=== PATIENT | male | born 1995 | race Caucasian/White ===

== ENCOUNTER 2019-08-11 02:40 | Observation (INO) | payer BC ==
--- NOTE | 2019-08-11 02:45 | EDM.PDOC ---
ED HPI GENERAL MEDICAL PROBLEM - General Time Seen by Provider: 08/11/19 02:44 - History of Present Illness INITIAL COMMENTS - FREE TEXT/NARRATIVE: PT presents ETOH abuse tonight. Was at the [employer] DD states pt "drank a whole bottle of makers cheryl" - Related Data Allergies Allergy/AdvReac Type Severity Reaction Status Date / Time cat dander Allergy Other Verified 08/11/19 02:45 Home Meds: Home Meds . [Unable to Verify Home Med List] 08/11/19 [History] ED ROS GENERAL - Review of Systems Review Of Systems: Unable To Obtain Reason Not Obtained: Unable to communicate to to large amount of etoh intake. ED EXAM, GENERAL - Physical Exam Exam: See Below Free Text/Narrative:: PT with acute alcohole intake tonight. Per friend "pt never drinks alcohol". Pt was at the [employer] when he dranke a "bottle of makers cheryl by himself". KLAUS at 292 tonight, unk pmhx as pt is not able to answer question. PT had vomited prior to arrival, LS cta no signs of asperation. Pt is awake and agitated, mildly combative. PT given 2 mg ativan for sedation,4 mg zofran for nausea, IV LR wide open 1000 ml, will then change to NS 125 cc/hr. Ativan q1h prn and benadryl 50 mg q4h as needed for sedation. Zofran 4 mg q4h prn N/V. Will admit obs for fluid and reduction of KLAUS. Exam Limited By: Intoxication General Appearance: Alert Eye Exam: Bilateral Eye: PERRL Ears: Normal External Exam Nose: Normal Inspection, Normal Mucosa, No Blood Throat/Mouth: Normal Inspection, Normal Lips, Normal Teeth, Normal Gums, Normal Oropharynx, Normal Voice, No Airway Compromise Head: Atraumatic, Normocephalic Respiratory/Chest: No Respiratory Distress, Lungs Clear, Normal Breath Sounds, No Accessory Muscle Use, Chest Non-Tender Cardiovascular: Normal Peripheral Pulses GI/Abdominal: Normal Bowel Sounds, Soft, Non-Tender, No Organomegaly, No Distention, No Abnormal Bruit, No Mass Skin Exam: Warm, Dry, Intact Course - Vital Signs Last Recorded V/S: Last Vital Signs Temp 36.0 C 08/11/19 02:45 Pulse 118 H 08/11/19 02:45 Resp 10 L 12/07/19 02:45 BP 111/72 08/11/19 02:45 Pulse Ox 97 08/11/19 02:45 - Orders/Labs/Meds Orders: Active Orders 24 hr Category Date Time Status Admission Status [Patient Status] [ADT] Routine ADT 08/11/19 03:34 Ordered UA RFX NEPTALI AND CULT IF INDIC [URIN] Stat Lab 08/11/19 02:46 Ordered URINE DRUG SCREEN,POC [POC] Stat Lab 08/11/19 02:47 Ordered LORazepam [Ativan] Med 08/11/19 03:32 Ordered 1 mg IVPUSH Q1H PRN Sodium Chloride 0.9% [Saline Flush] Med 08/11/19 02:45 Active 10 ml FLUSH ASDIRECTED PRN diphenhydrAMINE [Benadryl] Med 08/11/19 03:33 Ordered 50 mg IVPUSH Q4H PRN Peripheral IV Insertion Adult [OM.PC] Routine Oth 08/11/19 02:45 Ordered Medication Orders Diphenhydramine HCl (Benadryl) 50 mg IVPUSH Q4H PRN PRN Reason: Agitation Lorazepam (Ativan) 1 mg IVPUSH Q1H PRN PRN Reason: Anxiety Sodium Chloride (Saline Flush) 10 ml FLUSH ASDIRECTED PRN PRN Reason: Keep Vein Open Labs: Laboratory Tests 08/11/19 08/11/19 Range/Units 02:56 02:56 WBC 12.5 H (4.0-10.0) x10^3/uL RBC 5.35 (4.5-6.0) x10^6/uL Hgb 16.7 (14.0-18.0) g/dL Hct 46.9 (40.0-52.0) % MCV 87.7 (78.0-93.0) fL MCH 31.2 (26.0-32.0) pg MCHC 35.6 (32.0-36.0) g/dL RDW Coeff of Citlaly 13.1 (10.0-15.0) % Plt Count 209 (130-400) x10^3/uL Neut % (Auto) 76.1 (50.0-80.0) % Lymph % (Auto) 14.8 L (25.0-50.0) % [place] % (Auto) 8.1 (2.0-11.0) % Eos % (Auto) 0.8 (0.0-4.0) % Baso % (Auto) 0.2 (0.2-1.2) % Sodium 146 H (136-145) mmol/L Potassium 3.7 (3.5-5.1) mmol/L Chloride 105 (98-107) mmol/L Carbon Dioxide 25 (21-32) mmol/L Anion Gap 19.7 (10-20) mmol/L BUN 15 (7-18) mg/dL Creatinine 1.3 (0.70-1.30) mg/dL Est Cr Clr Drug Dosing TNP Estimated GFR (MDRD) > 60 Glucose 99 (74-106) mg/dL Calcium 8.5 (8.5-10.1) mg/dL Ethyl Alcohol 292 H (0-3) mg/dL Meds: Medications Generic Name Dose Route Start Last Admin Trade Name Freq PRN Reason Stop Dose Admin Diphenhydramine HCl 50 mg 08/11/19 03:33 Benadryl IVPUSH Q4H PRN Agitation Lorazepam 1 mg 08/11/19 03:32 Ativan IVPUSH Q1H PRN Anxiety Sodium Chloride 10 ml 08/11/19 02:45 Saline Flush FLUSH ASDIRECTED PRN Keep Vein Open Discontinued Medications Generic Name Dose Route Start Last Admin Trade Name Freq PRN Reason Stop Dose Admin Lactated Ringer's 1,000 mls @ 999 drops/min 08/11/19 02:56 08/11/19 03:02 Ringers, Lactated IV 08/11/19 03:11 999 drops/min ONETIME ONE Administration Lorazepam 1 mg 08/11/19 02:47 08/11/19 03:02 Ativan IVPUSH 08/11/19 02:48 1 mg STAT ONE Administration Lorazepam 1 mg 08/11/19 03:08 08/11/19 03:13 Ativan IVPUSH 08/11/19 03:09 1 mg STAT ONE Administration Ondansetron HCl 4 mg 08/11/19 02:59 08/11/19 03:05 Zofran IVPUSH 08/11/19 03:00 4 mg ONETIME ONE Administration Departure - Departure Time of Disposition: 03:42 Disposition: Refer to Observation Condition: Good Clinical Impression: Alcohol abuse - Discharge Information - My Orders Last 24 Hours: My Active Orders 08/11/19 02:45 Sodium Chloride 0.9% [Saline Flush] 10 ml FLUSH ASDIRECTED PRN Peripheral IV Insertion Adult [OM.PC] Routine 08/11/19 02:46 UA RFX NEPTALI AND CULT IF INDIC [URIN] Stat 08/11/19 02:47 URINE DRUG SCREEN,POC [POC] Stat 08/11/19 03:32 LORazepam [Ativan] 1 mg IVPUSH Q1H PRN 08/11/19 03:33 diphenhydrAMINE [Benadryl] 50 mg IVPUSH Q4H PRN 08/11/19 03:34 Admission Status [Patient Status] [ADT] Routine - Assessment/Plan Admission H&P: Please use this note as an admission H&P Last 24 Hours: My Active Orders 08/11/19 02:45 Sodium Chloride 0.9% [Saline Flush] 10 ml FLUSH ASDIRECTED PRN Peripheral IV Insertion Adult [OM.PC] Routine 08/11/19 02:46 UA RFX NEPTALI AND CULT IF INDIC [URIN] Stat 08/11/19 02:47 URINE DRUG SCREEN,POC [POC] Stat 08/11/19 03:32 LORazepam [Ativan] 1 mg IVPUSH Q1H PRN 08/11/19 03:33 diphenhydrAMINE [Benadryl] 50 mg IVPUSH Q4H PRN 08/11/19 03:34 Admission Status [Patient Status] [ADT] Routine
[2019-08-11] MEDS ORDERED: LORazepam 2 MG/ML SDV IVPUSH ONE ×2 (02:47→03:08)
[2019-08-11] MEDS ORDERED: Lactated Ringers 1,000 ML IV ONE (02:56)
[2019-08-11] MEDS ORDERED: Ondansetron 4 MG/2 ML SDV IVPUSH ONE (02:59)
[2019-08-11 03:24] LABS: CHLORIDE,CL 105 mmol/L (98-107); SODIUM,NA 146 mmol/L (136-145)
[2019-08-11 03:26] LABS: ANION GAP 19.7 mmol/L (10-20)
[2019-08-11] MEDS ORDERED: diphenhydrAMINE 50 MG/ML SDV IVPUSH PRN (03:33)
[2019-08-11] MEDS ORDERED: Ondansetron 4 MG/2 ML SDV IVPUSH PRN (03:36)
[2019-08-11] MEDS: LORazepam 2 MG/ML SDV IVPUSH PRN ×2 (03:54→06:32)
[2019-08-11] MEDS: Sodium Chloride 0.9% 10 ML Syringe FLUSH PRN ×2 (03:55→06:32)
[2019-08-11] MEDS: Sodium Chloride 0.9% 1,000 ML IV SCH ×2 (03:57→11:16)
[2019-08-11 16:44] LABS: BUPRENORPHINE,URINE NEGATIVE (NEGATIVE); MARIJUANA,URINE NEGATIVE (NEGATIVE); METHYLENEDIOXYMETHAMP,UR NEGATIVE (NEGATIVE)
[2019-08-11 16:45] LABS: PHENCYCLIDINE,URINE NEGATIVE (NEGATIVE)
--- NOTE | 2019-08-11 20:18 | PCM.DCSUM1 ---
Discharge Summary - Hospital Course HPI Initial Comments: He was admitted secondary to acute intoxication and needed observation. He was admitted by the emergency room. He had less lethargy later today and he was able to ambulate without risk of falling. He did do a urine specimen. He is able to get a ride. I was comfortable with his discharge today. Diagnosis: Stroke: No Modified Sac Scale: No Symptoms at All Modified Sac Scale Score: 0 - Discharge Data Discharge Date: 08/11/19 Discharge Disposition: Home, Self-Care 01 Condition: Good - Referral to Home Health Primary Care Physician: PCP Unobtainable - Patient Summary/Data Hospital Course: Admitted to observation. Discharged today. I reviewed the history and physical. - Patient Instructions Diet: Usual Diet as Tolerated Activity: As Tolerated Driving: Do Not Drive Showering/Bathing: May Shower Notify Provider of: Fever, Increased Pain, Swelling and Redness, Nausea and/or Vomiting - Discharge Plan *PRESCRIPTION DRUG MONITORING PROGRAM REVIEWED*: Not Applicable *COPY OF PRESCRIPTION DRUG MONITORING REPORT IN PATIENT NEETA: Not Applicable Home Medications: Home Meds . [Unable to Verify Home Med List] 08/11/19 [History] Oxygen Therapy Mode: Room Air Forms: ED Department Discharge Referrals: PCP,Unobtain [Primary Care Provider] - - Discharge Summary/Plan Comment DC Time >30 min.: No - General Info Date of Service: 08/11/19 Functional Status: Reports: Pain Controlled, Tolerating Diet, Ambulating - Review of Systems General: Reports: No Symptoms - Patient Data Vitals - Most Recent: Last Vital Signs Temp 37.1 C 08/11/19 13:49 Pulse 113 H 08/11/19 13:49 Resp 18 08/11/19 13:49 BP 114/46 L 08/11/19 13:49 Pulse Ox 94 L 08/11/19 10:00 Weight - Most Recent: 85.729 kg I&O - Last 24 hours: Intake & Output 08/11/19 08/11/19 08/11/19 06:59 14:59 22:59 Intake Total 226 180 Output Total 0 Balance 226 180 Lab Results - Last 24 hrs: Laboratory Results - last 24 hr 08/11/19 08/11/19 08/11/19 Range/Units 02:56 02:56 15:05 WBC 12.5 H (4.0-10.0) x10^3/uL RBC 5.35 (4.5-6.0) x10^6/uL Hgb 16.7 (14.0-18.0) g/dL Hct 46.9 (40.0-52.0) % MCV 87.7 (78.0-93.0) fL MCH 31.2 (26.0-32.0) pg MCHC 35.6 (32.0-36.0) g/dL RDW Coeff of Citlaly 13.1 (10.0-15.0) % Plt Count 209 (130-400) x10^3/uL Neut % (Auto) 76.1 (50.0-80.0) % Lymph % (Auto) 14.8 L (25.0-50.0) % [place] % (Auto) 8.1 (2.0-11.0) % Eos % (Auto) 0.8 (0.0-4.0) % Baso % (Auto) 0.2 (0.2-1.2) % Sodium 146 H (136-145) mmol/L Potassium 3.7 (3.5-5.1) mmol/L Chloride 105 (98-107) mmol/L Carbon Dioxide 25 (21-32) mmol/L Anion Gap 19.7 (10-20) mmol/L BUN 15 (7-18) mg/dL Creatinine 1.3 (0.70-1.30) mg/dL Est Cr Clr Drug Dosing TNP Estimated GFR (MDRD) > 60 Glucose 99 (74-106) mg/dL Calcium 8.5 (8.5-10.1) mg/dL Urine Color Dark yellow H (YELLOW) Urine Appearance Slightly cloudy H (CLEAR) Urine pH 5.5 (5.0-8.0) Ur Specific [place] 1.020 Urine Protein Negative (NEGATIVE) mg/dL Urine Glucose (UA) Negative (NEGATIVE) mg/dL Urine Ketones 40 H (NEGATIVE) mg/dL Urine Occult Blood Negative (NEGATIVE) Urine Nitrite Negative (NEGATIVE) Urine Bilirubin Negative (NEGATIVE) Urine Urobilinogen 0.2 (0.2) EU/dL Ur Leukocyte Esterase Negative (NEGATIVE) Urine Opiates Screen (NEGATIVE) Ur Buprenorphine Scrn (NEGATIVE) Ur Oxycodone Screen (NEGATIVE) Ur EDDP (Meth Metab) (NEGATIVE) Urine Methadone Screen (NEGATIVE) Ur Barbituates Screen (NEGATIVE) Ur Tricyclics Screen (NEGATIVE) Ur Phencyclidine Scrn (NEGATIVE) Ur Amphetamines Screen (NEGATIVE) U Methamphetamines Scrn (NEGATIVE) Urine MDMA Screen (NEGATIVE) U Benzodiazepines Scrn (NEGATIVE) Urine Cocaine Screen (NEGATIVE) U Marijuana (THC) Screen (NEGATIVE) Ethyl Alcohol 292 H (0-3) mg/dL 08/11/19 Range/Units 15:05 WBC (4.0-10.0) x10^3/uL RBC (4.5-6.0) x10^6/uL Hgb (14.0-18.0) g/dL Hct (40.0-52.0) % MCV (78.0-93.0) fL MCH (26.0-32.0) pg MCHC (32.0-36.0) g/dL RDW Coeff of Citlaly (10.0-15.0) % Plt Count (130-400) x10^3/uL Neut % (Auto) (50.0-80.0) % Lymph % (Auto) (25.0-50.0) % [place] % (Auto) (2.0-11.0) % Eos % (Auto) (0.0-4.0) % Baso % (Auto) (0.2-1.2) % Sodium (136-145) mmol/L Potassium (3.5-5.1) mmol/L Chloride (98-107) mmol/L Carbon Dioxide (21-32) mmol/L Anion Gap (10-20) mmol/L BUN (7-18) mg/dL Creatinine (0.70-1.30) mg/dL Est Cr Clr Drug Dosing Estimated GFR (MDRD) Glucose (74-106) mg/dL Calcium (8.5-10.1) mg/dL Urine Color (YELLOW) Urine Appearance (CLEAR) Urine pH (5.0-8.0) Ur Specific [place] Urine Protein (NEGATIVE) mg/dL Urine Glucose (UA) (NEGATIVE) mg/dL Urine Ketones (NEGATIVE) mg/dL Urine Occult Blood (NEGATIVE) Urine Nitrite (NEGATIVE) Urine Bilirubin (NEGATIVE) Urine Urobilinogen (0.2) EU/dL Ur Leukocyte Esterase (NEGATIVE) Urine Opiates Screen Negative (NEGATIVE) Ur Buprenorphine Scrn Negative (NEGATIVE) Ur Oxycodone Screen Negative (NEGATIVE) Ur EDDP (Meth Metab) Negative (NEGATIVE) Urine Methadone Screen Negative (NEGATIVE) Ur Barbituates Screen Negative (NEGATIVE) Ur Tricyclics Screen Negative (NEGATIVE) Ur Phencyclidine Scrn Negative (NEGATIVE) Ur Amphetamines Screen Negative (NEGATIVE) U Methamphetamines Scrn Negative (NEGATIVE) Urine MDMA Screen Negative (NEGATIVE) U Benzodiazepines Scrn Positive H (NEGATIVE) Urine Cocaine Screen Negative (NEGATIVE) U Marijuana (THC) Screen Negative (NEGATIVE) Ethyl Alcohol (0-3) mg/dL Med Orders - Current: Current Medications Discontinued Medications Diphenhydramine HCl (Benadryl) 50 mg IVPUSH Q4H PRN PRN Reason: Agitation Last Admin: 08/11/19 03:54 Dose: 50 mg Lactated Ringer's (Ringers, Lactated) 1,000 mls @ 999 drops/min IV ONETIME ONE Stop: 08/11/19 03:11 Last Admin: 08/11/19 03:02 Dose: 999 drops/min Sodium Chloride (Normal Saline) 1,000 mls @ 125 mls/hr IV ASDIRECTED JOANN Last Admin: 08/11/19 11:16 Dose: 125 mls/hr Lorazepam (Ativan) 1 mg IVPUSH STAT ONE Stop: 08/11/19 02:48 Last Admin: 08/11/19 03:02 Dose: 1 mg Lorazepam (Ativan) 1 mg IVPUSH STAT ONE Stop: 08/11/19 03:09 Last Admin: 08/11/19 03:13 Dose: 1 mg Lorazepam (Ativan) 1 mg IVPUSH Q1H PRN PRN Reason: Anxiety Last Admin: 08/11/19 06:32 Dose: 1 mg Ondansetron HCl (Zofran) 4 mg IVPUSH ONETIME ONE Stop: 08/11/19 03:00 Last Admin: 08/11/19 03:05 Dose: 4 mg Ondansetron HCl (Zofran) 4 mg IVPUSH Q4H PRN PRN Reason: Nausea Sodium Chloride (Saline Flush) 10 ml FLUSH ASDIRECTED PRN PRN Reason: Keep Vein Open Last Admin: 08/11/19 06:32 Dose: 10 ml - Exam Quality Assessment: Denies: Supplemental Oxygen General: Reports: Alert, Oriented HEENT: Reports: Pupils Equal, Pupils Reactive Neck: Reports: Supple Lungs: Reports: Clear to Auscultation, Normal Respiratory Effort Cardiovascular: Reports: Regular Rate, Regular Rhythm GI/Abdominal Exam: Normal Bowel Sounds, Soft Skin: Reports: Warm, Dry Neurological: Reports: No New Focal Deficit Psy/Mental Status: Reports: Alert, Normal Affect
== END 2019-08-11 18:00 | disposition home or self-care (01) ==
LOC: VM.ED 02:40 → VM.MS 03:35
PROVIDERS: ADMIT Nurse Practitioner; ATTEND Nurse Practitioner
DX: F10.129 Alcohol abuse with intoxication, unspecified (principal); Z91.09 Other allergy status, other than to drugs and biological substances
CPT/HCPCS: 80048; 80305-QW; 81003; 85025; 96361; 96374; 96375; 96376; 99284-25; G0378; G0480; J1200; J2060; J2405; J7030; J7120

== ENCOUNTER 2024-12-07 13:19 | Emergency (ER) | payer BC ==
[2024-12-07] MEDS: Dexamethasone/Tobramycin 0.1-0.3% Ophth Susp 2.5 ML Bottle EYERT STA (14:35)
== END 2024-12-07 14:40 | disposition home or self-care (01) ==
LOC: VM.ED 13:19
DX: H11.421 Conjunctival edema, right eye (principal); J45.909 Unspecified asthma, uncomplicated; Z91.048 Other nonmedicinal substance allergy status
CPT/HCPCS: 99283; 99284; A9270-GY

== ENCOUNTER 2025-03-24 09:39 | Emergency (ER) | payer BC ==
[2025-03-24] MEDS ORDERED: Sodium Chloride 0.9% 10 ML Syringe FLUSH PRN (10:03)
[2025-03-24] MEDS: Lactated Ringers 1,000 ML IV ONE (10:10)
[2025-03-24 10:14] LABS: BASOPHILS ABSOLUTE AUTO 0.0 x10^3/uL (0.0-0.2); BASOPHILS PERCENT AUTO 0.4 % (0.2-1.2); EOSINOPHILS ABSOLUTE AUTO 0.2 x10^3/uL (0.0-0.5); EOSINOPHILS PERCENT AUTO 3.2 % (0.0-4.0); IMMATURE GRAN ABSOLUTE AUTO 0.00 x10^3/uL (0.00-0.07); IMMATURE GRAN PERCENT AUTO 0.00 % (0.00-0.43); LYMPHOCYTES ABSOLUTE AUTO 2.0 x10^3/uL (1.0-4.8); LYMPHOCYTES PERCENT AUTO 34.8 % (25.0-50.0); MONOCYTES ABSOLUTE AUTO 0.5 x10^3/uL (0.0-0.8); MONOCYTES PERCENT AUTO 8.4 % (2.0-11.0); NEUTROPHILS ABSOLUTE AUTO 3.0 x10^3/uL (1.8-7.7); NEUTROPHILS PERCENT AUTO 53.2 % (50.0-80.0); PLATELET COUNT,PLT 191 x10^3/uL (130-400); RED BLOOD CELL COUNT 4.89 x10^6/uL (4.5-6.0); WHITE BLOOD CELL COUNT,WBC 5.6 x10^3/uL (4.0-10.0)
[2025-03-24 10:38] LABS: A/G RATIO 1.41; ALANINE AMINOTRANSFERASE,ALT 35 U/L (16-63); ASPARTATE AMNIOTRANSFERASE,AST 18 U/L (15-37); BILIRUBIN TOTAL 0.5 mg/dL (0.2-1.0); BLOOD UREA NITROGEN,BUN 9 mg/dL (7-18); CARBON DIOXIDE,CO2 28 mmol/L (21-32); CHLORIDE,CL 107 mmol/L (98-107); CREATININE 1.0 mg/dL (0.70-1.30); GLUCOSE RANDOM 113 mg/dL (70-99); POTASSIUM,K 3.3 mmol/L (3.5-5.1); PROTEIN TOTAL,TP 6.5 g/dL (6.4-8.2); SODIUM,NA 143 mmol/L (136-145)
[2025-03-24 10:39] LABS: ESTIMATED GFR 104 mL/min (>=60)
[2025-03-24 10:40] LABS: ETHANOL BLOOD MEDICAL < 3 mg/dL (0-3)
[2025-03-24] MEDS: Potassium Chloride 10 MEQ Tab.ER PO ONE (11:07)
[2025-03-24] MEDS: Magnesium Sulfate 2 GM/50 mL 2 GM in Premix Bag 1 BAG IV ONE (11:08)
== END 2025-03-24 13:07 | disposition home or self-care (01) ==
LOC: VM.ED 09:39
DX: E87.8 Other disorders of electrolyte and fluid balance, not elsewhere classified (principal); Z91.048 Other nonmedicinal substance allergy status; Z91.09 Other allergy status, other than to drugs and biological substances; Z79.899 Other long term (current) drug therapy
CPT/HCPCS: 80053; 80307; 83735; 85025; 96361; 96365; 96366; 99283; 99284-25; A9270-GY; J3475; J7120

== ENCOUNTER 2025-03-31 18:36 | Emergency (ER) | payer BC ==
[2025-03-31] MEDS: Dexamethasone 10 MG/ML SDV PO ONE (18:57)
[2025-03-31] MEDS: EPINEPHrine 1 MG/ML SDV IM ONE (18:57)
[2025-03-31] MEDS: diphenhydrAMINE 50 MG/ML SDV IM ONE (18:57)
== END 2025-03-31 19:35 | disposition home or self-care (01) ==
LOC: VM.ED 18:36
DX: T78.1XXA Other adverse food reactions, not elsewhere classified, initial encounter (principal); J45.909 Unspecified asthma, uncomplicated; Z91.048 Other nonmedicinal substance allergy status; Z91.018 Allergy to other foods; Z79.51 Long term (current) use of inhaled steroids
CPT/HCPCS: 96372; 99282; 99284; J0171; J1100; J1200

== ENCOUNTER 2025-04-02 12:29 | Emergency (ER) | payer BC | END 2025-04-02 14:00 | disposition home or self-care (01) | LOC: VM.ED 12:29 → SUPCPDRO 12:29 → VM.ED 14:00 | DX: F41.9 Anxiety disorder, unspecified (principal); F45.8 Other somatoform disorders; Z91.09 Other allergy status, other than to drugs and biological substances; Z91.048 Other nonmedicinal substance allergy status; Z79.899 Other long term (current) drug therapy | CPT/HCPCS: 99283; A9270; 99282 ==